=== PATIENT | female | born 1935 | race Two or more races ===

== ENCOUNTER → 2017-11-07 | Outpatient (CLI) | payer OTHER | END | disposition home or self-care (01) | LOC: KCIC 11:10 | DX: M25.461 Effusion, right knee (principal) | CPT/HCPCS: 73562 ==

== ENCOUNTER → 2020-06-07 | Outpatient (CLI) | payer MEDICAID, OTHER ==
[2018-01-12 12:21] VITALS: BP 147/65
[~2020-06-07] MED LIST: AMLO-186 PO; AMLO2.5T5 PO; CARV25TA PO; CARV3.1210 PO; CLOP75TA PO; DIGO125T3 PO; FURO-69 PO; LOSA-73 PO; LOSA1TAB25 PO
--- NOTE | 2020-06-07 16:52 | KCIC ---
3 view C-spine HISTORY: Chronic neck pain AP lateral and open-mouth views There is mild degenerative anterolisthesis of C3 on C4 and C4 on C5 and C6 on C7 and C7 on T1. There is no prevertebral soft tissue swelling. There is no loss of vertebral body stature. The C1-C2 relationship is normal. There is chronic changes of the facets bilaterally. There is marginal spurring of endplates at C5-T1. 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 No acute findings. Electronically signed by: Ruperto Rincon III, MD (06/07/2020 4:49 PM) [facility]
== END ==
LOC: KCIC 10:54
PROVIDERS: ATTEND Physician Assistant
DX: M47.812 Spondylosis without myelopathy or radiculopathy, cervical region (principal); M43.12 Spondylolisthesis, cervical region; G89.29 Other chronic pain
CPT/HCPCS: 72040

== ENCOUNTER → 2020-06-22 | Outpatient (CLI) | payer OTHER ==
[2018-01-12 12:21] VITALS: BP 147/65
[~2020-06-22] MED LIST changes: +CONTRAST GIVEN. MC PRN; +IOHEXOL 240 MG/ML 50ML VIAL. PO ONE
--- NOTE | 2020-06-22 17:47 | RAD ---
Examination: CT ABD PEL W/ORAL CONTRST ONLY History: Reason: CHRONIC ANEMIA, WEIGHT LOSS, LOSS OF APPETITE, ADNEXAL MASS / Spl. Instructions: PO ONLY OMNI 240 50 MLS / History: Comparison/Correlation: 11/08/2017 CT abdomen and pelvis with contrast Findings: Axial images of the abdomen and pelvis were obtained following oral contrast administration only. Sagittal and coronal reformatted images were provided. Mild cardiomegaly is present. Minimal linear scarring or atelectasis at the right lung base negative. Liver, spleen, pancreas, and adrenal glands are unremarkable. Cholelithiasis is present. No biliary dilatation. Inferior vena cava is mostly decompressed. No radiopaque collecting system calculi. Minimal nonspecific opacification of the right renal interpole cortex is present. Left renal interpolar region cyst. Cyst described appears similar in size and has Hounsfield units of 10. Diverticulosis of the colon is present. Appendix is normal. Small umbilical hernia contains multiple fat. Right adnexal cyst measuring 8.5 cm x 6.3 cm is present with Hounsfield units of less than 10. It is uniform and homogeneous in appearance. Left adnexal complex density structure with circumferential wall which is mildly thick is present measuring up to 5.8 cm x 4.3 cm. Bladder is unremarkable. Uterus is unremarkable for the patient's age. No ascites or pelvic free fluid. Minimal anterolisthesis of L4 in relation L5. Concentric disc bulge at L3-4 is notable with mild spinal canal stenosis. Impression: Cholelithiasis. Diverticulosis. Right adnexal cyst is mildly increased in size by 0.5 cm compared to 11/08/2017 with measurement. No suspicious new feature identified. Mild increase in the left adnexal complex cystic structure by 0.5 cm noted. Increased density of this structure compared to previous exam is evident which may represent hemorrhage or proteinaceous debris. Increased thickness of the wall circumferentially is noted in the interval. Consider further assessment with ultrasound exam. PQRS Compliance Statement: One or more of the following individualized dose reduction techniques were utilized for this examination: 1. Automated exposure control 2. Adjustment of the mA and/or kV according to patient size 3. Use of iterative reconstruction technique Electronically signed by: Ryne Muro MD (06/22/2020 5:44 PM) [id number]
== END ==
LOC: CT 12:53
PROVIDERS: ATTEND Physician Assistant
DX: K80.20 Calculus of gallbladder without cholecystitis without obstruction (principal); N28.1 Cyst of kidney, acquired; K57.30 Diverticulosis of large intestine without perforation or abscess without bleeding; K42.9 Umbilical hernia without obstruction or gangrene; N94.9 Unspecified condition associated with female genital organs and menstrual cycle; R63.4 Abnormal weight loss; R53.0 Neoplastic (malignant) related fatigue; D63.8 Anemia in other chronic diseases classified elsewhere; J98.11 Atelectasis; I51.7 Cardiomegaly; M43.16 Spondylolisthesis, lumbar region
CPT/HCPCS: 74176

== ENCOUNTER 2021-10-21 10:16 | Inpatient (IN) | payer OTHER ==
[~2021-10-21] VITALS: Ht 162.6 cm; Wt 53.1 kg
[~2021-10-21 10:16] MED LIST changes: -CONTRAST GIVEN. MC PRN; -IOHEXOL 240 MG/ML 50ML VIAL. PO ONE
[2021-10-21 10:30] VITALS: BP 182/80
[2021-10-21] MEDS ORDERED: CARV12.53 PO (10:50)
[2021-10-21] MEDS ORDERED: FURO20TA3 PO (10:56)
[2021-10-21] MEDS ORDERED: NITR100C6 PO (10:56)
[2021-10-21] MEDS ORDERED: SERT-267 PO (10:56)
--- NOTE | 2021-10-21 10:59 | PDOC2 ---
TIEN MEYER RISK TECH 10/21/21 1059: CARDIAC CONSULT DATE OF CONSULT Date of Consult DATE: 10/21/21 TIME: 10:56 REASON FOR CONSULT Reason for Consult: Acute on chronic diastolic CHF REFERRING PHYSICIAN Referring Physician: Dr. Grimaldo SOURCE Source: Chart review HISTORY OF PRESENT ILLNESS HISTORY OF PRESENT ILLNESS This is an 86 yo female who as a direct admit from Dr. Grimaldo's office secondary to lower extremity edema, CHF. Daughter reports patient has been experiencing bilateral LE edema for the past 2 weeks. Has progressively worsened. Was seen by her primary care provider and admitted directly to the hospital for further evaluation and treatment. No reports of chest pain, palpitations, dizziness, diaphoresis, or nausea/vomiting. Does take Lasix 20mg daily at home and had been compliant with this. No recent illness or fevers. PAST MEDICAL HISTORY Cardiovascular: CHF, HTN, Hyperlipidemia GI: Diverticulosis Heme/Onc: Anemia NOS Endocrine: Hypothyroidism PAST SURGICAL HISTORY Past Surgical History: Other (bilateral knee ) FAMILY HISTORY Family History: Other (noncontributory ) SOCIAL HISTORY Smoke: No ALCOHOL: none Drugs: None Lives: with Family ALLERGIES ALLERGIES: Coded Allergies: No Known Drug Allergies (Unverified , 08/31/15) ROS Review of System 14 point ROS conducted with pertinent positives noted above in HPI PHYSICAL EXAM General: Alert, Oriented X3, Cooperative, No acute distress HEENT: Atraumatic, Mucous membr. moist/pink Lungs: Other (diminished bases) Heart: Regular rate, Other (2/6 systolic murmur ) Abdomen: Soft, No tenderness Extremities: Other (2+ bilateral LE edema ) Skin: No significant lesion Neuro: Normal speech, Sensation intact Psych/Mental Status: Mood NL MUSCULOSKELETAL: Osteoarthritic changes both hands ASSESSMENT/PLAN ASSESSMENT/PLAN 1. Acute on chronic diastolic CHF 2. Accelerated HTN 3. Hyperlipidemia 4. Hypothyroidism; on replacement 5. Anemia Recommendations Initial labs pending EKG, CXR Tele monitoring Diuresis with monitoring of labs Echo to assess LV systolic function Resume home antiHTN therapy Hydralazine IV PRN Supportive care Further pending above. MORGAN KHAN MD 10/21/21 2300: CARDIAC CONSULT ASSESSMENT/PLAN ASSESSMENT/PLAN Parient seen and examined. Agree with RAILROAD COMMISSIONER's assessment and plan 2D echo showed normal LVF Ac on chr diast HF better compensated BP better controlled since admission Thank you for your consultation TIEN MEYER APRN Oct 21, 2021 10:59 MORGAN KHAN MD Oct 21, 2021 23:00
[2021-10-21] MEDS ORDERED: POTASSIUM CHLORIDE 20 MEQ TABLET.ER. PO ONE (11:00)
[2021-10-21] MEDS ORDERED: LEVO25TA52 PO (11:05)
[2021-10-21] MEDS: LEVOTHYROXINE 25 MCG TABLET. PO SCH (11:27)
[2021-10-21] MEDS: SERTRALINE 50 MG TABLET. PO SCH (11:27)
[2021-10-21] MEDS: CARVEDILOL 6.25 MG TABLET. PO SCH ×2 (11:28→16:29)
[2021-10-21 12:12] LABS: BASO % 1 % (0-3); EOS # 0.5 x10^3/uL (0.0-0.7); EOS % 11 % (0-3); HEMATOCRIT 32.3 % (36.0-47.0); HEMOGLOBIN 10.4 g/dL (12.0-15.5); LYMPH # 1.5 x10^3/uL (1.0-4.8); LYMPH % 33 % (24-48); MEAN CORPUSCULAR HEMOGLOBIN 33 pg (25-35); MEAN CORPUSCULAR HGB CONC 32 g/dL (31-37); MEAN CORPUSCULAR VOLUME 103 fL (79-100); MONO # 0.3 x10^3/uL (0.0-1.1); MONO % 7 % (0-9); NEUT # 2.2 x10^3/uL (1.8-7.7); NEUT % 48 % (31-73); PLATELET COUNT 73 x10^3/uL (140-400); RED BLOOD COUNT 3.13 x10^6/uL (3.50-5.40); RED CELL DISTRIBUTION WIDTH 15.6 % (11.5-14.5); WHITE BLOOD COUNT 4.5 x10^3/uL (4.0-11.0)
[2021-10-21 12:27] LABS: ALBUMIN 2.4 g/dL (3.4-5.0); ALBUMIN/GLOBULIN RATIO 0.6 (1.0-1.7); CALCIUM 8.9 mg/dL (8.5-10.1); CREATININE 0.8 mg/dL (0.6-1.0); GFR 67.7; POTASSIUM 4.9 mmol/L (3.5-5.1); TOTAL BILIRUBIN 0.6 mg/dL (0.2-1.0); TOTAL PROTEIN 6.2 g/dL (6.4-8.2)
[2021-10-21 12:30] LABS: CHOLESTEROL/HDL RATIO 5.3
--- NOTE | 2021-10-21 12:56 | EKG ---
[facility] [address] [place] [address] Test Date: 2021-10-21 Test Time: 12:52:19 Pat Name: LEONEL ZHENG Department: Room: 1 1 Gender: F Baker Chef: [place] : 1935 Requested By: TIEN MEYER Order Number: [id number] Reading MD: Erlin Chacko Measurements Intervals [place] Rate: 70 P: 26 CA: 192 QRS: -11 QRSD: 86 T: 47 QT: 412 QTc: 448 Interpretive Statements SINUS RHYTHM ATRIAL PREMATURE COMPLEX(ES) LEFTWARD AXIS Electronically Signed On 10-28-2021 14:15:47 CDT by Erlin Chacko
[2021-10-21] MEDS: FUROSEMIDE 40 MG/4 ML VIAL. IVP SCH (13:04)
--- NOTE | 2021-10-21 14:58 | RAD ---
EXAMINATION: XR CHEST 1V CLINICAL HISTORY: CHF. EXAM DATE/TIME: 10/21/2021 1:22 PM COMPARISON: 01/12/2018 FINDINGS: Lines, Tubes, and Devices: None. Cardiomediastinal Silhouette: Cardiomegaly, similar to prior study. Aortic atherosclerotic calcificat ion. Lungs and Pleura: Mild bibasilar opacities. No definite pleural effusion. Pulmonary vasculature unrem arkable. Bones and Soft Tissues: Degenerative changes in the thoracic spine. IMPRESSION: Mild bibasilar opacities, possibly related to subsegmental atelectasis and/or scarring but superimpos ed edema is not excluded. Cardiomegaly. Electronically signed by: Lucas Hudson DO (10/21/2021 2:55 PM) [id number]
[2021-10-21 15:00] VITALS: BP 202/84
[2021-10-21] MEDS: hydrALAZINE 20 MG/ML VIAL. IVP PRN (15:26)
--- NOTE | 2021-10-21 18:32 | CARD ---
MR#: [id number] Date of Study: 10/21/2021 Ordering Physician: ELÍAS CABRERA, Referring Physician: ELÍAS CABRERA Tech: Siri Bejarano NAS APPROVED REPORT EXAM: Two-dimensional and M-mode echocardiogram with Doppler and color Doppler. Other Information Quality : GoodHR: 55bpm Rhythm : NSR INDICATION Congestive Heart Failure RISK FACTORS Hypertension Obesity 2D DIMENSIONS RVDd3.9 (2.9-3.5cm)Left Atrium(2D)4.1 (1.6-4.0cm) IVSd1.3 (0.7-1.1cm)Aortic Root(2D)3.5 (2.0-3.7cm) LVDd4.7 (3.9-5.9cm)LVOT Diameter2.3 (1.8-2.4cm) PWd1.2 (0.7-1.1cm)LVDs3.1 (2.5-4.0cm) FS (%) 34.6 %SV65.9 ml LVEF(%)63.7 (>50%) Aortic Valve AoV Peak Montez.116.2cm/sAoV VTI31.5cm AO Peak GR.5.4mmHgLVOT Peak Montez.78.8cm/s AO Mean GR.3mmHgAVA (VMAX)2.80cm2 Pulmonary Valve PV Peak Zgawxzfz47.1cm/s LEFT VENTRICLE The left ventricle is normal size. There is mild concentric left ventricular hypertrophy. The left ve ntricular systolic function is normal. The ejection fraction is estimated at 55 to 60%. There is norm al LV segmental wall motion. RIGHT VENTRICLE The right ventricle is normal size. There is normal right ventricular wall thickness. The right ventr icular systolic function is normal. ATRIA The left atrium is mildly dilated. The right atrium size is normal. The interatrial septum is intact with no evidence for an atrial septal defect or patent foramen ovale as noted on 2-D or Doppler imagi ng. AORTIC VALVE The aortic valve is thickened but opens well. Doppler and Color Flow revealed mild aortic regurgitati on. There is no significant aortic valvular stenosis. MITRAL VALVE The mitral valve is normal in structure and function. There is no evidence of mitral valve prolapse. There is no mitral valve stenosis. Doppler and Color-flow revealed mild mitral regurgitation. TRICUSPID VALVE The tricuspid valve is normal in structure and function. Doppler and Color Flow revealed trace tricus pid regurgitation. There is no tricuspid valve stenosis. PULMONIC VALVE The pulmonary valve is normal in structure and function. Doppler and Color Flow revealed moderate pul kim valvular regurgitation. GREAT VESSELS The aortic root is normal in size. The ascending aorta is normal in size. The IVC is normal in size a nd collapses >50% with inspiration. PERICARDIAL EFFUSION There is no evidence of significant pericardial effusion. Critical Notification Critical Value: No <Conclusion> The left ventricular systolic function is normal. The ejection fraction is estimated at 55 to 60%. There is normal LV segmental wall motion. Mild aortic regurgitation. Mild mitral regurgitation. Trace tricuspid regurgitation. There is no evidence of significant pericardial effusion. Signed by : Erlin Chacko, Electronically Approved : 10/21/2021 18:31:43
[2021-10-21 19:00] VITALS: BP 163/72
[2021-10-21] MEDS ORDERED: NITROFURANTOIN MONOHYD/M-CRYST 100 MG CAPSULE. PO SCH (21:00)
[2021-10-21] MEDS ORDERED: CARVEDILOL 12.5 MG TABLET. PO SCH (21:00)
[2021-10-21 22:26] VITALS: BP 170/76
[2021-10-22 00:12] LABS: HEMOGLOBIN A1C 5.3 % (4.8-5.6)
[2021-10-22 02:38] VITALS: BP 161/70
[2021-10-22] MEDS: LEVOTHYROXINE 25 MCG TABLET. PO SCH (06:38)
[2021-10-22 07:00] VITALS: BP 159/78
--- NOTE | 2021-10-22 07:23 | PDOC ---
PROGRESS NOTES Date of Service: DATE: 10/22/21 TIME: 07:22 Subjective Subjective Feeling better with improvement in edema Objective Objective Vital Signs Date Time Temp Pulse Resp B/P (MAP) Pulse Ox O2 Delivery O2 Flow Rate FiO2 10/22/21 02:38 98.4 70 18 161/70 (100) 95 Room Air 98.4 Intake and Output 10/22/21 07:00 Intake Total 220 ml Balance 220 ml Intake Oral 220 ml # Voids 2 Physical Exam Abdomen: Soft, No tenderness Heart: Regular rate, Other (2/6 systolic murmur ) Extremities: Other (2+ bilateral LE edema ) General: Alert, Oriented X3, Cooperative, No acute distress HEENT: Atraumatic, Mucous membr. moist/pink Lungs: Other (diminished bases) MUSCULOSKELETAL: Osteoarthritic changes both hands Neuro: Normal speech, Sensation intact Psych/Mental Status: Mood NL Skin: No significant lesion Assessment Assessment 1. Acute on chronic diastolic CHF: Better compensated after diuresis with Lasix. 2D echo showed normal LV systolic function with EF 55 to 60% without any wall motion abnormalities. 2. Accelerated HTN: Better controlled since admission 3. Hyperlipidemia 4. Hypothyroidism; on replacement 5. Anemia Comment Review of Relevant I have reviewed the following items hussain (where applicable) has been applied. Labs Laboratory Tests Test 10/21/21 11:56 White Blood Count 4.5 x10^3/uL (4.0-11.0) Red Blood Count 3.13 x10^6/uL (3.50-5.40) Hemoglobin 10.4 g/dL (12.0-15.5) Hematocrit 32.3 % (36.0-47.0) Mean Corpuscular Volume 103 fL (79-100) Mean Corpuscular Hemoglobin 33 pg (25-35) Mean Corpuscular Hemoglobin Concent 32 g/dL (31-37) Red Cell Distribution Width 15.6 % (11.5-14.5) Platelet Count 73 x10^3/uL (140-400) Neutrophils (%) (Auto) 48 % (31-73) Lymphocytes (%) (Auto) 33 % (24-48) Monocytes (%) (Auto) 7 % (0-9) Eosinophils (%) (Auto) 11 % (0-3) Basophils (%) (Auto) 1 % (0-3) Neutrophils # (Auto) 2.2 x10^3/uL (1.8-7.7) Lymphocytes # (Auto) 1.5 x10^3/uL (1.0-4.8) Monocytes # (Auto) 0.3 x10^3/uL (0.0-1.1) Eosinophils # (Auto) 0.5 x10^3/uL (0.0-0.7) Basophils # (Auto) 0.0 x10^3/uL (0.0-0.2) Sodium Level 141 mmol/L (136-145) Potassium Level 4.9 mmol/L (3.5-5.1) Chloride Level 112 mmol/L (98-107) Carbon Dioxide Level 24 mmol/L (21-32) Anion Gap 5 (6-14) Blood Urea Nitrogen 20 mg/dL (7-20) Creatinine 0.8 mg/dL (0.6-1.0) Estimated GFR (Cockcroft-Gault) 67.7 BUN/Creatinine Ratio 25 (6-20) Glucose Level 121 mg/dL (70-99) Hemoglobin A1c 5.3 % (4.8-5.6) Calcium Level 8.9 mg/dL (8.5-10.1) Iron Level 96 ug/dL (50-170) Total Iron Binding Capacity 162 ug/dL (250-450) Iron Saturation 59 % (15-34) Total Bilirubin 0.6 mg/dL (0.2-1.0) Aspartate Amino Transf (AST/SGOT) 47 U/L (15-37) Alanine Aminotransferase (ALT/SGPT) 26 U/L (14-59) Alkaline Phosphatase 145 U/L (46-116) Troponin I High Sensitivity 17 ng/L (4-50) XF-Aoc-T-Type Natriuretic Peptide 2678 pg/mL (0-449) Total Protein 6.2 g/dL (6.4-8.2) Albumin 2.4 g/dL (3.4-5.0) Albumin/Globulin Ratio 0.6 (1.0-1.7) Triglycerides Level 124 mg/dL (0-150) Cholesterol Level 217 mg/dL (0-200) LDL Cholesterol, Calculated 151 mg/dL (0-100) VLDL Cholesterol, Calculated 25 mg/dL (0-40) Non-HDL Cholesterol Calculated 176 mg/dL (0-129) HDL Cholesterol 41 mg/dL (40-60) Cholesterol/HDL Ratio 5.3 Vitamin B12 Level 463 pg/mL (247-911) Medications Current Medications Carvedilol (Coreg) 6.25 mg BID PO ; Start 10/21/21 at 21:00; Status UNV Carvedilol (Coreg) 6.25 mg BIDWMEALS PO Last administered on 10/21/21 16:29; Start 10/21/21 at 11:00 Furosemide (Lasix) 40 mg DAILY IVP Last administered on 10/21/21 13:04; Start 10/21/21 at 11:00 Hydralazine HCl (Apresoline Inj) 10 mg PRN Q4HRS PRN IVP ELEVATED BP, SEE COMMENTS Last administered on 10/21/21 15:26; Start 10/21/21 at 12:15 Levothyroxine Sodium (Synthroid) 25 mcg DAILY07 PO Last administered on 10/22/21 06:38; Start 10/21/21 at 11:30 Nitrofurantoin Macrocrystals (Macrobid) 100 mg QHS PO Last administered on 10/21/21 20:36; Start 10/21/21 at 21:00 Potassium Chloride (Klor-Con) 40 meq DAILY ONCE PO Last administered on 10/21/21 11:27; Start 10/21/21 at 11:00; Stop 10/21/21 at 11:01; Status DC Sertraline HCl (Zoloft) 50 mg DAILY PO Last administered on 10/21/21 11:27; Start 10/21/21 at 11:00 Vitals/I & O Vital Sign - Last 24 Hours 10/21/21 10/21/21 10/21/21 10/21/21 10:30 11:28 15:00 15:26 Temp 97.6 97.4 97.6 97.4 Pulse 56 56 54 58 Resp 17 18 B/P (MAP) 182/80 (114) 182/80 202/84 (123) 204/86 Pulse Ox 97 98 O2 Delivery Room Air Room Air 10/21/21 10/21/21 10/21/21 10/21/21 16:29 19:00 20:00 22:26 Temp 97.9 98.0 97.9 98.0 Pulse 58 65 69 Resp 18 18 B/P (MAP) 204/86 163/72 (102) 170/76 (107) Pulse Ox 98 98 O2 Delivery Room Air Room Air Room Air 10/22/21 02:38 Temp 98.4 98.4 Pulse 70 Resp 18 B/P (MAP) 161/70 (100) Pulse Ox 95 O2 Delivery Room Air Intake and Output 10/21/21 10/21/21 10/22/21 15:00 23:00 07:00 Intake Total 120 ml 100 ml Balance 120 ml 100 ml MORGAN KHAN MD Oct 22, 2021 07:22
[2021-10-22] MEDS: FUROSEMIDE 40 MG/4 ML VIAL. IVP SCH (08:41)
[2021-10-22] MEDS: SERTRALINE 50 MG TABLET. PO SCH (08:41)
[2021-10-22] MEDS: CARVEDILOL 6.25 MG TABLET. PO SCH ×2 (08:42→17:11)
[2021-10-22 10:53] VITALS: BP 129/60
--- NOTE | 2021-10-22 12:06 | PDOC ---
Provider Note Date of Service: DATE: 10/22/21 TIME: 12:05 Provider Note vss, edema some less- labs good but low platelets- echo good, has high salt intake- another day of lasix then dc Justifications for Admission Other Justification VELASQUEZ OTERO MD Oct 22, 2021 12:06
[2021-10-22 15:00] VITALS: BP 145/65
[2021-10-22 19:11] VITALS: BP 178/77
[2021-10-22] MEDS: hydrALAZINE 20 MG/ML VIAL. IVP PRN (21:50)
[2021-10-22 22:43] VITALS: BP 146/68
[2021-10-23 02:51] VITALS: BP 146/65
[2021-10-23] MEDS: LEVOTHYROXINE 25 MCG TABLET. PO SCH (06:35)
[2021-10-23 07:00] VITALS: BP 167/71
[2021-10-23] MEDS: CARVEDILOL 6.25 MG TABLET. PO SCH (07:47)
[2021-10-23] MEDS: SERTRALINE 50 MG TABLET. PO SCH (07:48)
[2021-10-23] MEDS: FUROSEMIDE 40 MG/4 ML VIAL. IVP SCH (07:49)
--- NOTE | 2021-10-23 09:27 | PDOC ---
PROGRESS NOTES Date of Service: DATE: 10/23/21 TIME: 09:27 Subjective Subjective Feeling much better. Dyspnea improved. Denied any chest pain. Objective Objective Vital Signs Date Time Temp Pulse Resp B/P (MAP) Pulse Ox O2 Delivery O2 Flow Rate FiO2 10/23/21 08:00 Room Air 10/23/21 07:47 70 146/65 10/23/21 07:00 98.4 19 94 98.4 10/22/21 10:53 3.0 Intake and Output 10/23/21 07:00 Intake Total 60 ml Balance 60 ml Intake Oral 60 ml # Voids 3 Physical Exam Abdomen: Soft, No tenderness Heart: Regular rate, Other (2/6 systolic murmur ) Extremities: Other (2+ bilateral LE edema ) General: Alert, Oriented X3, Cooperative, No acute distress HEENT: Atraumatic, Mucous membr. moist/pink Lungs: Other (diminished bases) MUSCULOSKELETAL: Osteoarthritic changes both hands Neuro: Normal speech, Sensation intact Psych/Mental Status: Mood NL Skin: No significant lesion Assessment Assessment 1. Acute on chronic diastolic CHF: Better compensated after diuresis with Lasix. Change Lasix to PO. 2D echo showed normal LV systolic function with EF 55 to 60% without any wall motion abnormalities. 2. Accelerated HTN: Better controlled since admission 3. Hyperlipidemia 4. Hypothyroidism; on replacement 5. Anemia Comment Review of Relevant I have reviewed the following items hussain (where applicable) has been applied. Vitals/I & O Vital Sign - Last 24 Hours 10/22/21 10/22/21 10/22/21 10/22/21 10:53 15:00 17:11 19:11 Temp 98.1 98.1 97.8 98.1 98.1 97.8 Pulse 67 64 64 63 Resp 16 18 16 B/P (MAP) 129/60 (83) 145/65 (91) 145/65 178/77 (110) Pulse Ox 100 97 99 O2 Delivery Nasal Cannula Room Air Room Air O2 Flow Rate 3.0 10/22/21 10/22/21 10/22/21 10/23/21 19:45 21:50 22:43 02:51 Temp 98.2 98.4 98.2 98.4 Pulse 64 70 70 Resp 16 18 B/P (MAP) 152/72 146/68 (94) 146/65 (92) Pulse Ox 98 96 O2 Delivery Room Air Room Air Room Air 10/23/21 10/23/21 10/23/21 07:00 07:47 08:00 Temp 98.4 98.4 Pulse 70 70 Resp 19 B/P (MAP) 167/71 (103) 146/65 Pulse Ox 94 O2 Delivery Room Air Room Air Intake and Output 10/22/21 10/22/21 10/23/21 15:00 23:00 07:00 Intake Total 60 ml 0 ml Balance 60 ml 0 ml MORGAN KHAN MD Oct 23, 2021 09:27
--- NOTE | 2021-10-23 10:49 | PDOC ---
Provider Note Date of Service: DATE: 10/23/21 TIME: 10:49 Provider Note [id number] Justifications for Admission Other Justification VELASQUEZ OTERO MD Oct 23, 2021 10:49
[2021-10-23 11:00] VITALS: BP 174/60
--- NOTE | 2021-10-23 16:29 | DS ---
DATE OF DISCHARGE: 10/23/2021 HOSPITAL SUMMARY: An 86-year-old female with history of hypertension and mild edema with increasing swelling in her legs consistent with possible congestive heart failure. Laboratory studies were generally unremarkable with normal electrolytes and renal function, and cortisol and ACTH level are pending at this time drawn because of hyperpigmentation that she appears to have to rule out Clarion's disease. Echocardiogram showed good ejection fraction at 60% with no pericardial problems and she received IV Lasix x 3 doses with good results and the edema largely resolved. Family supports the fact that she has a high salt intake at home and this has likely contributed to the edema. She is able to be followed as an outpatient at this point. FINAL DIAGNOSES: 1. Edema secondary to acute diastolic heart failure and high sodium intake. 2. 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 OPERATIONS, PROCEDURES, AND COMPLICATIONS: None. CONSULTATION: Erlin Chacko MD DISPOSITION: Home meds will remain the same with daily Lasix and main thing is to lower the high sodium intake that she does use. Office followup with Dr. Grimaldo and myself in 1-2 weeks to check with cortisol and ACTH level and potassium level likely as well. PROGNOSIS: Good. CATHRYN/JULIA LOPEZ: Gonsalo TID: [id number]
[2021-10-24] MEDS ORDERED: FUROSEMIDE 40 MG TABLET. PO SCH (09:00)
--- NOTE | 2021-10-26 06:20 | HP ---
DATE OF SERVICE: 10/25/2021 ADMIT DATE: 10/21/2021 CHIEF COMPLAINT: Leg swelling. HISTORY OF PRESENT ILLNESS: An 86-year-old female who came in with increasing swelling of both legs over the last few weeks. There has been mild shortness of breath, but no other specific symptoms. She has been taking low-dose furosemide without benefit and was admitted as a possible diabetic, heart failure. MEDICATIONS: Listed per the chart. ALLERGIES: No allergies are known. She has had echocardiograms in the past, which has been okay to her knowledge. Also, has a history of anemia and has been on B12 for a long time with good benefit. No drug allergies are known. SOCIAL HISTORY: , lives with the family. Nondrinker. Not physically active because of severe arthritis. REVIEW OF SYSTEMS: No other specific complaints. OBJECTIVE: ENT: All within normal limits. No pallor is seen. NECK: No bruits, nodes or masses. LUNGS: Decreased breath sounds. No wheezes or rales. CARDIOVASCULAR: Regular rate. No irregular heart tones or irregular beats. EXTREMITIES: 2+ pretibial edema. No joint or skin lesions. Good pedal pulses. NEUROLOGIC: Physiologic and nonfocal. ASSESSMENT: Edema, likely secondary to diastolic heart failure and high sodium intake. She has a history of vitamin B12 deficiency, treated with oral B12 and history of chronic kidney disease 3a, which has been stable. PLAN: As ordered. MELONY/PADMINI/CHIQUITA DR: Gonsalo TID: [id number]
== END 2021-10-23 14:14 | disposition home or self-care (01) | DRG 291 ==
LOC: 6 SOUTH 10:16
PROVIDERS: ADMIT Family Medicine; ATTEND Family Medicine
DX: I13.0 Hypertensive heart and chronic kidney disease with heart failure and stage 1 through stage 4 chronic kidney disease, or unspecified chronic kidney disease (principal); I50.33 Acute on chronic diastolic (congestive) heart failure; E27.1 Primary adrenocortical insufficiency; D64.9 Anemia, unspecified; E03.9 Hypothyroidism, unspecified; E78.5 Hyperlipidemia, unspecified; K57.90 Diverticulosis of intestine, part unspecified, without perforation or abscess without bleeding; L81.9 Disorder of pigmentation, unspecified; N18.31 Chronic kidney disease, stage 3a; M19.90 Unspecified osteoarthritis, unspecified site
CPT/HCPCS: 36415; 71045; 80053; 80061; 82024; 82533; 82607; 83036; 83540; 83550; 83880; 84484; 85025; 93005; 93306; J0360; J1940; 97110-GP; 97116-GP; 97530-GO; C8929; G0378